=== PATIENT | female | born 1985 | race Caucasian/White ===

== ENCOUNTER 2017-08-19 06:38 | Day surgery (SDC) | payer BC ==
[~2017-08-19] VITALS: Ht 149.9 cm; Wt 59.8 kg
[2017-08-19] VITALS (17 sets, daily range): BP systolic 104–134; BP diastolic 64–81; PULSE 60–98; RESP 14–24; Ht 149.9 cm; Wt 59.8 kg
[2017-08-19] MEDS ORDERED: FENTAnyl 50 MCG/ML VIAL ONE (07:41)
[2017-08-19] MEDS ORDERED: ROCURONIUM 50 MG INJ ONE (07:41)
[2017-08-19] MEDS ORDERED: METOCLOPRAMIDE 10 MG INJ ONE (07:41)
[2017-08-19] MEDS ORDERED: ONDANSETRON 4 MG INJ ONE (07:41)
[2017-08-19] MEDS ORDERED: PROPOFOL 20 ML ONE (07:41)
[2017-08-19] MEDS ORDERED: SUCCINYLCHOLINE CHLORIDE 100 MG/5 ML SYG IV ONE (07:41)
[2017-08-19 07:42] LABS: BASOPHILS % 0.5 % (0.0-2.0); EOSINOPHILS # 0.3 10^3/ul (0.0-0.5); EOSINOPHILS % 3.7 % (0.0-7.0); HEMATOCRIT 38.2 % (37.0-47.0); HEMOGLOBIN 12.8 g/dl (12.0-16.0); LYMPHOCYTES # 3.3 10^3/ul (0.8-2.9); LYMPHOCYTES % 40.3 % (15.0-51.0); MEAN CORPUSCULAR HEMOGLOBIN 29.4 pg (29.0-33.0); MEAN CORPUSCULAR HGB CONC 33.5 g/dl (32.0-37.0); MEAN CORPUSCULAR VOLUME 87.8 fl (82.0-101.0); MEAN PLATELET VOLUME 10.9 fl (7.4-10.4); MONOCYTE # 0.6 10^3/ul (0.3-0.9); MONOCYTES % 7.7 % (0.0-11.0); NEUTROPHIL # 3.9 10^3/ul (1.6-7.5); NEUTROPHILS % 47.6 % (39.0-77.0); PLATELET COUNT 318 10^3/UL (140-415); RED BLOOD COUNT 4.35 10^6/ul (4.20-5.40); RED CELL DISTRIBUTION WIDTH 12.8 % (11.5-14.5); WHITE BLOOD COUNT 8.2 10^3/ul (4.8-10.8)
[2017-08-19] MEDS ORDERED: STRONG IODINE 14 ML SOLUTION TOP ONE (07:43)
[2017-08-19 07:46] LABS: INR 0.98
[2017-08-19 07:47] LABS: PARTIAL THROMBOPLASTIN TIME 28.4 Sec (25.0-35.0)
[2017-08-19 07:49] LABS: ALBUMIN/GLOBULIN RATIO 1.02; BILIRUBIN,INDIRECT 0.3 mg/dl (0-1.1); BILIRUBIN,TOTAL 0.3 mg/dl (0.2-1.3); TOTAL PROTEIN 7.9 g/dl (6.1-8.1)
--- NOTE | 2017-08-19 07:49 | RADRPT ---
PROCEDURE: XR Chest. CLINICAL INDICATION: Preop TECHNIQUE: AP Portable chest. COMPARISON: No pertinent prior examinations were submitted for comparison. FINDINGS: The cardiomediastinal silhouette is normal. The aorta is normal. No focal consolidation, pleural eff usion or pneumothorax is seen. The osseous structures are intact. IMPRESSION: No radiographic evidence of acute cardiopulmonary disease. Physician Kailey Date Time Electronically viewed and signed by Kia Dueñas Physician on 08/19/2017 07:49 CS/
[2017-08-19 07:55] LABS: CALCIUM 9.4 mg/dl (8.4-10.2); CREATININE 0.58 mg/dl (0.44-1.00); POTASSIUM 4.2 mmol/L (3.5-5.1)
[2017-08-19] MEDS ORDERED: LABETALOL HCL 20MG INJ IV PRN (08:00)
[2017-08-19] MEDS ORDERED: hydrALAzine 20 MG INJ IV PRN (08:00)
[2017-08-19] MEDS ORDERED: MEPERIDINE 25 MG INJ IV PRN (08:00)
[2017-08-19] MEDS ORDERED: ONDANSETRON 4 MG INJ IV PRN (08:00)
[2017-08-19] MEDS ORDERED: FENTAnyl 50 MCG/ML VIAL IV PRN ×2 (08:00)
[2017-08-19] MEDS ORDERED: HYDROmorphONE (0.2 MG/ML) 10ML SYG IV PRN ×3 (08:00)
[2017-08-19 08:11] LABS: ADD UMIC YES; UR ASCORBIC ACID NEGATIVE (NEGATIVE); UR BILIRUBIN (Dip) NEGATIVE (NEGATIVE); UR BLOOD (Dip) NEGATIVE (NEGATIVE); UR CLARITY SLIGHTLY CLOUDY (CLEAR); UR COLOR YELLOW (YELLOW); UR GLUCOSE (Dip) NEGATIVE (NEGATIVE); UR KETONES (Dip) NEGATIVE (NEGATIVE); UR LEUKOCYTE ESTERASE (Dip) 1+ Leu/ul (NEGATIVE); UR MUCUS FEW /HPF (NONE SEEN); UR NITRITE (Dip) NEGATIVE (NEGATIVE); UR RBC 2 /HPF (0-5); UR SPECIFIC GRAVITY (Dip) 1.018 (1.003-1.030); UR SQUAMOUS EPITHELIAL CELL FEW /HPF (FEW); UR TOTAL PROTEIN (Dip) NEGATIVE (NEGATIVE); UR UROBILINOGEN (Dip) NEGATIVE (NEGATIVE)
[2017-08-19] MEDS ORDERED: HYDROmorphONE (0.2 MG/ML) 10ML SYG IV ONE (09:38)
--- NOTE | 2017-08-19 10:10 | SIPON ---
Date/Time of Note Date/Time of Note DATE: 08/19/17 TIME: 10:05 Operative Report Preoperative Diagnosis CARLOS I Postoperative Diagnosis see pathologic report Operation/Procedure Performed cold conization of cervix D&C Surgeon see signature line hr assistant none Anesthesia: general Estimated blood loss: 10 - 50 ml's Transfusion Required none Specimen cone of cervix ECC [facility] Grafts/Implants none Complications none WALLACE EASTON MD Aug 19, 2017 10:10
--- NOTE | 2017-08-19 10:13 | PD.PPDC ---
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
--- NOTE | 2017-08-19 14:08 | RADRPT ---
Vent Rate: 64 bpm RR Interval: 0 msec RI Interval: 168 msec QRS Duration: 80 msec QT Interval: 418 msec QTC Interval: 431 msec P-R-T [place]: 59 - 61 - 49 degrees Normal sinus rhythm Normal ECG Electronically Signed By: Uzair Rivera [id number]
--- NOTE | 2017-08-20 10:12 | OPR ---
DATE OF OPERATION: 08/19/2017 PREOPERATIVE DIAGNOSIS: Cervical intraepithelial neoplasia. POSTOPERATIVE DIAGNOSIS: See pathological report. OPERATIVE PROCEDURE: Cold conization of the cervix and fractional dilation and curettage. SURGEON: Flor Castaneda MD ANESTHESIA: General. ANESTHESIOLOGIST: Lino Yeboah MD ESTIMATED BLOOD LOSS: Less than 30 mL. PROCEDURE IN DETAIL: Under appropriate induction of general anesthesia, the patient was placed in the dorsal lithotomy position. Perineal area and vagina were prepped and draped in usual aseptic manner. On inspection, external genitalia revealed no gross abnormality. Bimanual examination revealed uterus is normal size and consistency. There was no palpable adnexa pathology. A weighted speculum was introduced into the vagina. Cervix identified, which appeared to be parous and clear. Anterior lip of the cervix was grasped with a single-tooth tenaculum and the Lugol solution applied on the cervical os face. There was a shield of positive area on the 6 o'clock direction, approximately 1 cm in diameter. At the 3 o'clock and 9 o'clock positions, hemostatic ligation using number 1 chromic catgut was placed and the suture was left alone for the procedure. A circular incision was made on the cervical surface using blade 11 and in a cone shape, the entire cone of the cervix was removed en bloc followed by endocervical curetting, done with double-kind of forceps, triple-kind curettes and scanty tissue was obtained and again endometrial curetting was done in 4 quadrants, obtaining scant tissue. ligation using number 1 chromic catgut starting from the lower lip and, again, upper lip and thus hemostasis was secured. A piece of Surgicel was introduced into the defect area. After the insertion of the Surgicel, there was a continues oozing and additional suture was placed on the upper lip, which controlled the bleeding. All the sutures were cut and all the instruments were removed from the operative field. Sponge count taken, which was correct. The patient withstood the procedure and was sent to the recovery room in stable condition. Thank you this is. Dictated By: Flor Castaneda MD /sari/payton /Document#: [id number]
== END 2017-08-19 11:30 | disposition home or self-care (01) ==
LOC: SDS 06:38 → SUR 06:38
PROVIDERS: ATTEND Obstetrics & Gynecology
DX: N72 Inflammatory disease of cervix uteri (principal)
CPT/HCPCS: 57520; 71010; 80053; 81001; 84703; 85025; 85610; 85730; 93005; J1170; J2405; J2765; J3010; J7999